=== PATIENT | male | born 2000 | race Caucasian/White ===

== ENCOUNTER 2024-04-01 22:23 | Emergency (ER) | payer OTHER ==
[~2024-04-01] VITALS: Ht 177.8 cm; Wt 90.9 kg
[2024-04-01 22:56] LABS: BASOPHILS # (AUTO) 0.1 X10'3 (0-0.2); EOSINOPHILS # (AUTO) 0.4 X10'3 (0-0.9); NEUTROPHILS # (AUTO) 3.7 X10'3 (1.8-7.7)
[2024-04-01 22:57] LABS: ALBUMIN 4.4 G/DL (3.4-5.0); ANION GAP 17 (8-16); BLOOD UREA NITROGEN 12 MG/DL (7-18); BUN/CREATININE RATIO 10.7 (10.0-20.0); CALCIUM 9.4 MG/DL (8.5-10.1); CHLORIDE 102 MMOL/L (99-107); CREATININE 1.12 MG/DL (0.60-1.10); GLUCOSE 193 MG/DL (70-104); SODIUM 141 MMOL/L (135-145); TOTAL CARBON DIOXIDE 22.4 MMOL/L (24-32); eCRCL 106 ML/MIN; eGFR 81 ML/MIN
[2024-04-01 22:58] LABS: BASOPHILS % (AUTO) 0.8 % (0-1); EOSINOPHILS % (AUTO) 3.2 % (0-6); HEMOGLOBIN 16.4 g/dl (14.0-17.9); LYMPHOCYTES # (AUTO) 6.2 X10'3 (1.1-4.8); LYMPHOCYTES % (AUTO) 54.5 % (21-51); MEAN CORPUSCULAR HEMOGLOBIN 29.6 PG (27.0-31.0); MEAN CORPUSCULAR HGB CONC 32.9 g/dL (33.0-36.5); MEAN PLATELET VOLUME 8.1 FL (7.4-10.4); MONOCYTES % (AUTO) 9.1 % (2-12); NEUTROPHILS % (AUTO) 32.4 % (42-75); PLATELET COUNT 438 X10'3 (140-440); RED BLOOD COUNT 5.56 X10'6 (4.70-6.10); RED CELL DISTRIBUTION WIDTH 13.7 % (11.5-14.5); WHITE BLOOD COUNT 11.4 X10'3 (4.5-11.0)
[2024-04-01 23:01] LABS: POTASSIUM 2.5 MMOL/L (3.5-5.1)
[2024-04-01] MEDS: ondansetron/PF 4mg/2ml inj IV STA (23:05)
[2024-04-01] MEDS: potassium Cl 20 mEq SR tablet PO STA (23:19)
--- NOTE | 2024-04-01 23:20 | NUR ---
spoke to ER MD about electrolyte replacement. MD requested order be changed to 40mEq potassium PO now and then give another 40mEq potassium PO in an hour. PT was given zofran by EMS at 2220 and pt denies nausea at this time. New Zofran order will be held for now, aware.
[2024-04-01] MEDS: normal saline 1000ml 1,000 ML IV ONE (23:29)
[2024-04-01] MEDS: potassium Cl 20 mEq SR tablet PO ONE (23:29)
--- NOTE | 2024-04-01 23:33 | NUR ---
pt immediately had an episode of emesis upon recieving medication. pt sitting up, leaning forward, with emesis bag.
[2024-04-01 23:36] LABS: PLATELET ESTIMATE NORMAL; TOTAL CELLS COUNTED 100
[2024-04-01 23:49] LABS: MAGNESIUM 1.6 MG/DL (1.5-2.4)
[2024-04-02] MEDS: potassium Cl 40MEQ/1/2NS 520ml 520 ML IV SCH (00:06)
[2024-04-02] MEDS: magnesium sulf-water 2g/50mL 50 ML IV ONE (00:06)
[2024-04-02] MEDS: potassium Cl 20 mEq SR tablet PO ONE (00:13)
[2024-04-02 03:43] LABS: BILIRUBIN,URINE NEGATIVE (Neg); CLARITY,URINE CLEAR (Clear); COLOR,URINE YELLOW (Yellow); GLUCOSE, URINE 100 mg/dl (Neg); KETONES,URINE NEGATIVE (Neg); LEUKOCYTE ESTERASE ,URINE NEGATIVE (Neg); NITRITES, URINE NEGATIVE (Neg); OCCULT BLOOD,URINE NEGATIVE (Neg); PROTEIN,URINE NEGATIVE (Neg); UROBILINOGEN,URINE 0.2 E.U/dL (0.2-1.0)
[2024-04-02 03:47] LABS: UA COLLECTION TYPE CLN CATCH MIDSTREAM
[2024-04-02 03:51] LABS: URINE AMPHETAMINE SCREEN NEGATIVE (Neg); URINE BARBITUATE SCREEN NEGATIVE (Neg); URINE BENZODIAZEPINES SCREEN NEGATIVE (Neg); URINE CANNABINOID SCREEN POSITIVE (Neg); URINE COCAINE SCREEN NEGATIVE (Neg); URINE METHADONE SCREEN NEGATIVE (Neg); URINE OPIATE SCREEN NEGATIVE (Neg); URINE PHENCYCLIDINE SCREEN NEGATIVE (Neg)
--- NOTE | 2024-04-02 05:05 | NUR ---
VERBAL ORDER GIVEN BY DR. SANCHEZ FOR 80 mEq ORAL POTASSIUM CHLORIDE TO BE GIVEN ONCE FOR NOW.
[2024-04-02] MEDS: potassium Cl 20 mEq SR tablet PO STA ×2 (05:11→08:16)
[2024-04-02] MEDS ORDERED: ONDA-245 PO (05:41)
[2024-04-02] MEDS ORDERED: POTA-207 PO (07:29)
[2024-04-02] MEDS ORDERED: ONDA-243 PO (07:33)
--- NOTE | 2024-04-02 07:39 | NUR ---
UP TO BATHROOM AT THIS TIME. AWAITING FOR PATIENT TO FIND RIDE HOME.
[2024-04-02 08:34] VITALS: BP 118/83; PULSE 74; RESP 18; TEMP 99; O2SAT 98
== END 2024-04-02 08:25 | disposition home or self-care (01) ==
LOC: ER 22:24
DX: R11.2 Nausea with vomiting, unspecified (principal); E87.6 Hypokalemia; Z79.899 Other long term (current) drug therapy
CPT/HCPCS: 36415; 80048; 80305; 81003; 83735; 85007; 85025; 93005; 96365; 96366; 96368; 99285; J3480; J7030